=== PATIENT | female | born 1945 | race Caucasian/White ===

== ENCOUNTER 2017-08-14 07:52 | Day surgery (SDC) | payer MEDICARE, OTHER ==
[2017-08-14] VITALS (9 sets, daily range): BP systolic 101–126; BP diastolic 60–70
[~2017-08-14] VITALS: Ht 167.6 cm; Wt 72.1 kg
[~2017-08-14 07:52] MED LIST: LR 1000ml 1,000 ML IVLG SCH
[2017-08-14] MEDS ORDERED: CLONAZEPAM0.5 M1 PO (08:24)
[2017-08-14] MEDS ORDERED: NEXIUM40 MG ORAL (08:24)
--- NOTE | 2017-08-14 08:46 | Short Stay Surgery H&P ---
History of Present Illness History of Present Illness Chief Complaint GERDs/abdominal pains and history of familial colon CA for screening HPI Arelis Navrarete is a 72 year old female who was admitted on for Ibs/Gerd and family history of colon CA. Patient History Allergies: Coded Allergies: No Known Allergies (Unverified , 08/14/17) PAST MEDICAL HISTORY: (1) Depression Past Surgeries: Social History: Medication History Scheduled Clonazepam (Clonazepam), 0.5 MG PO NEEDED, (Reported) Esomeprazole Magnesium (Nexium), 40 MG ORAL NEEDED, (Reported) Review of Systems Cardiovascular: Reports: no symptoms Respiratory: Reports: no symptoms Skeletal: Reports: no symptoms Gastrointestinal: Reports: no symptoms, gastro esophageal reflux disease Genitourinary: Reports: no symptoms Neurologic: Reports: no symptoms Endocrine: Reports: no symptoms Hematologic: Reports: no symptoms Physical Exam Vital Signs Last Vital Signs Date Time Temp Pulse Resp B/P (MAP) Pulse Ox O2 Delivery O2 Flow Rate FiO2 08/14/17 08:25 97.3 76 18 126/61 96 Room Air Skin: normal HENT: normal Heart: normal Lungs: normal Abdomen: normal Extremities: normal Genitourinary: normal Plan Plan of Care Upper and lower GI endoscopies. Preop Interventions None. Summary of Findings See the reports Final Diagnosis: Attestation Are the patient's medical conditions optimized for surgery? Attestation Response: yes SHARMIN HUA Aug 14, 2017 08:46
--- NOTE | 2017-08-14 08:47 | Pre-Procedure Note/Attestation ---
Pre-Procedure Note/Attestation Complete Prior to Procedure Planned Procedure: left Procedure Narrative: endoscopic examination of the upper and lower GI tract. Indications for Procedure Pre-Operative Diagnosis: R/O Gastritis/Peptic Ulcer/ Colon polyps/ CA Attestation I attest that I discussed the nature of the procedure; its benefits; risks and complications; and alternatives (and the risks and benefits of such alternatives ), prior to the procedure, with the patient (or the patient's legal operations support representative). I attest that, if there was a reasonable possibility of needing a blood transfusion, the patient (or the patient's legal operations support representative) was given the [place] [employer] [facility] [employer] [facility] standardized written summary, pursuant to the Jr [place] Blood Safety Act ([place] Health and Safety Code # 1645, as amended). I attest that I re-evaluated the patient just prior to the surgery and that there has been no change in the patient's H&P, except as documented below: MELITA,SAID Aug 14, 2017 08:47
[2017-08-14] MEDS ORDERED: LR 1000ml ONE (09:00)
[2017-08-14] MEDS ORDERED: fentaNYL 100 mcg/2 mL IV ONE (09:00)
[2017-08-14] MEDS ORDERED: Propofol 200mg/20ml IV ONE (09:00)
[2017-08-14] MEDS ORDERED: Midazolam 2mg/2ml Inj ONE (09:00)
--- NOTE | 2017-08-14 09:23 | Endoscopy Procedure Note ---
Endoscopy Procedure Note Procedures Performed: EGD - Mild gastritis of antral area and small Hital Hernia with biopsy obtained from antrum., colonoscopy - Rare diverticular lesions in left colon with minimal internal hemorrhoids found; otherwise completely normal total colon. Specimen: yes Pt Tolerated Procedure Well: Yes Estimated Blood Loss: none Anesthesiologist: Dr. Calzada Anesthesia: moderate sedation Medication Given: see anesthesia record Implant(s) used?: No 50 yrs or older w/o bx or poly: Yes 10yrs. F/U not recommended: Yes 10 yrs. F/U needed: Yes <3yrs. since last colonoscopy: No Med reason:<3 yrs.: System Reason:<3 yrs.: Last colonoscopy >= to 3yrs: Yes SHARMIN HUA Aug 14, 2017 09:23
--- NOTE | 2017-08-14 09:24 | Discharge Instructions ---
Discharge Instructions Discharge Instructions Follow up with: see the docotor in 10 days in office. For Congestive Heart Failure Reminder Report to your physician any weight gain of 5 pounds or more in one week. SHARMIN HUA Aug 14, 2017 09:24
--- NOTE | 2017-08-14 19:45 | Operative Note - Dictated ---
DATE OF OPERATION: 08/14/2017 SURGEON: Josr Marie M.D. PROCEDURE: Esophagogastroduodenoscopy with biopsy. PREOPERATIVE DIAGNOSES: 1. Abdominal pain. 2. History of gastroesophageal reflux. POSTOPERATIVE DIAGNOSES: 1. Mild gastritis of the antrum consistent with antritis, biopsied. 2. Small hiatal hernia. MEDICATION USED: Per Dr. Calzada. ANESTHESIOLOGIST: Dr. Calzada. INSTRUMENT: GIF Olympus upper GI video endoscope. DESCRIPTION OF PROCEDURE: The patient after arriving at endoscopy unit was told about risks and benefits of the procedure, which she accepted and signed informed consent. She was then put in the left lateral decubitus position. After adequate IV sedation, the scope was gently passed through the cricopharyngeal area, was lodged into the upper esophagus, and gradually advanced towards gastroesophageal junction. The entire length of the esophagus looked normal without any pathology. GE junction also looked normal without any evidence of Matos's, however, there was a small hiatal hernia of no great significance. At this point, the scope was advanced into the stomach. Gastric cavity was insufflated with air and it revealed that the areas of the fundus and the body looked normal, however, there was erythema over the antral area particularly over the posterior wall on the greater curvature side consistent with antritis. A couple of biopsies from this area were obtained, however, there was no any evidence of tumors, polyps, bleeding site, hemangiomas, etc. At this point, the scope was passed through normal-looking pylorus. First and second portion of duodenum were found to be completely normal. The scope was then pulled back into the stomach. A retroflexion maneuver was applied. The area of the gastroesophageal junction was examined in a closer fashion, which revealed no abnormalities. Finally, the procedure was terminated. The patient tolerated the procedure well. Josr Marie M.D. DR: DIXON JOB#: [id number] CC:
--- NOTE | 2017-08-14 20:00 | Operative Note - Dictated ---
DATE OF OPERATION: 08/14/2017 SURGEON: Josr Marie M.D. PROCEDURE: Total colonoscopy. PREOPERATIVE DIAGNOSES: 1. History of familial colon cancer. 2. Screening colonoscopy. POSTOPERATIVE DIAGNOSIS: Minimal internal hemorrhoids with minimal diverticular lesions in the left colon, otherwise complete normal study up to the base of the cecum. MEDICATION USED: Per Dr. Calzada. ANESTHESIOLOGIST: Dr. Calzada. INSTRUMENT: GIF Olympus video colonoscope. DESCRIPTION OF PROCEDURE: The patient after arriving at endoscopy unit, was told about risks and benefits of the procedure, which she accepted and signed informed consent. She was then put in the left lateral decubitus position. After adequate IV sedation, the scope was gently passed through the rectal area, the retroflexion maneuver which was applied revealed evidence of very minimal internal hemorrhoids of no great significance and there were not any friable or hemorrhagic. The rest of the rectum looked normal. At this time, the scope was passed through the rectal area and twisted into the left colon, which gradually showed very minimal occasional diverticular lesions of no great significance. Finally, the scope reached towards the splenic flexure. From there, it was guided into the transverse colon reaching to the hepatic flexure and finally, the scope was advanced into the right ascending colon up to the base of the cecum. All these areas remained to be completely normal without any pathology. The colon cleanup was adequate and within 5-6 minutes, the scope was gradually pulled out and re-evaluation of the colon did not reveal any other abnormalities other than what was stated earlier. The patient tolerated the procedure well and left the endoscopy room in good condition. Said Tia Marie DR: NI JOB#: [id number] CC: ALON
== END 2017-08-14 10:50 | disposition home or self-care (01) ==
LOC: GAS 07:52
DX: Z12.11 Encounter for screening for malignant neoplasm of colon (principal); Z80.0 Family history of malignant neoplasm of digestive organs; K64.8 Other hemorrhoids; F32.9 Major depressive disorder, single episode, unspecified; K21.9 Gastro-esophageal reflux disease without esophagitis; K44.9 Diaphragmatic hernia without obstruction or gangrene; K29.50 Unspecified chronic gastritis without bleeding
CPT/HCPCS: 43239; 45378; J2250; J2704; J3010; J7120; 94003; 94150